=== PATIENT | female | born 1980 | race Caucasian/White ===

== ENCOUNTER 2017-04-06 18:50 | Emergency (ER) | payer OTHER, MEDICARE ==
--- NOTE | 2017-04-06 20:01 | ED.PDOC ---
History of Present Illness - General Stated Complaint: C/O ABDOMINAL AND VAGINAL PAIN Time Seen by Provider: 04/06/17 19:55 Source: patient Exam Limitations: no limitations Additional Information: PT C/O ABOVE SX. PAIN IN LOWER ABDOMEN IS SHARP, VAGINAL PAIN IS CRAMPING. - History of Present Illness Timing/Duration: other - TODAY Severity: mild Improving Factors: nothing Worsening Factors: nothing Allergies/Adverse Reactions: Allergies Acetaminophen [From Darvocet-N] Allergy (Verified 04/06/17 20:33) Dextromethorphan [From Ru-Tuss Expectorant] Allergy (Verified 04/06/17 20:33) Diphenhydramine [From Benadryl] Allergy (Verified 04/06/17 20:33) Erythromycin Allergy (Verified 04/06/17 20:33) Ethanol [From Ru-Tuss Expectorant] Allergy (Verified 04/06/17 20:33) Guaifenesin [From Ru-Tuss Expectorant] Allergy (Verified 04/06/17 20:33) Meperidine [From Demerol HCl] Allergy (Verified 04/06/17 20:33) Propoxyphene [From Darvocet-N] Allergy (Verified 04/06/17 20:33) Pseudoephedrine [From Ru-Tuss Expectorant] Allergy (Verified 04/06/17 20:33) Home Medications: Ambulatory Orders Cefuroxime Axetil [Ceftin] 500 mg PO BID #20 tab 04/06/17 Ondansetron [Zofran Odt] 4 mg PO TID PRN #6 tab 04/06/17 Phenazopyridine HCl [Pyridium] 200 mg PO TID PRN #9 tab 04/06/17 Review of Systems - Review of Systems Constitutional: Denies: chills, fever EENTM: States: no symptoms reported Respiratory: States: no symptoms reported Cardiology: States: no symptoms reported Gastrointestinal/Abdominal: States: abdominal pain. Denies: nausea, vomiting Genitourinary: States: dysuria, frequency, pain. Denies: discharge Musculoskeletal: States: no symptoms reported Skin: States: no symptoms reported Neurological: States: no symptoms reported Endocrine: States: no symptoms reported Family Medical History - Family History Mother Family History: Unknown Living Status: Still Living Physical Exam - Physical Exam General Appearance: Alert, No apparent distress, Obese, Well Nourished Eye Exam: bilateral normal Ears, Nose, Throat: hearing grossly normal, normal ENT inspection Neck: non-tender, full range of motion, supple Respiratory: lungs clear, normal breath sounds Cardiovascular/Chest: regular rate, rhythm, no murmur Gastrointestinal/Abdominal: normal bowel sounds, soft, no organomegaly, other - MILD DIFFUSE LOWER ABDOMINAL TTP G/U: NL EXT, NO D/C NL CX, NO MASSES, BIMANUAL , UTX ABSENT NO ADNEXAL MASS/TTP. Back Exam: normal inspection, no CVA tenderness, no vertebral tenderness Extremity: normal range of motion, non-tender, normal inspection Neurologic: alert, normal mood/affect Skin Exam: normal color, warm/dry Lymphatic: no adenopathy Departure - Departure Clinical Impression: History of PCOS UTI (urinary tract infection) Qualifiers: Urinary tract infection type: acute cystitis Hematuria presence: without hematuria Qualified Code(s): N30.00 - Acute cystitis without hematuria Time of Disposition: 21:09 Disposition: Discharge to Home or Self Care Condition: Excellent Instructions: DI for Urinary Tract Infection (UTI) Referrals: MANJIT MEDINA [Primary Care Provider] - 1-2 Weeks Prescriptions: Cefuroxime Axetil [Ceftin] 500 mg PO BID #20 tab Ondansetron [Zofran Odt] 4 mg PO TID PRN #6 tab PRN Reason: Nausea/Vomiting Phenazopyridine HCl [Pyridium] 200 mg PO TID PRN #9 tab PRN Reason: Pain Home Medications: Ambulatory Orders Cefuroxime Axetil [Ceftin] 500 mg PO BID #20 tab 04/06/17 Ondansetron [Zofran Odt] 4 mg PO TID PRN #6 tab 04/06/17 Phenazopyridine HCl [Pyridium] 200 mg PO TID PRN #9 tab 04/06/17
[2017-04-06 20:09] VITALS: TEMP 99.3
[2017-04-06] MEDS ORDERED: ONDANSETRON ODT (ER DISP) 8 MG TAB PO ONE (20:53)
[2017-04-06] MEDS ORDERED: ONDANSETRON ODT 8 MG TAB ONE (20:56)
[2017-04-06] MEDS ORDERED: ONDANSETRON ODT 8 MG TAB SL ONE (21:05)
[2017-04-06] MEDS ORDERED: cefTRIAXone SODIUM 1 GM VIAL IM ONE (21:15)
[2017-04-06] MEDS ORDERED: LIDOCAINE 1% 10 ML VIAL INJ ONE (21:29)
[2017-04-06 22:18] VITALS: BP 135/76; O2SAT 100
== END 2017-04-06 22:19 | disposition home or self-care (01) ==
LOC: ER 18:50
DX: N30.00 Acute cystitis without hematuria (principal); Z88.8 Allergy status to other drugs, medicaments and biological substances
CPT/HCPCS: 36415; 80048; 81001; 85025; 87086; J0696

== ENCOUNTER → 2018-12-11 | Outpatient (CLI) | payer OTHER, MEDICARE ==
--- NOTE | 2018-12-11 18:13 | US ---
EXAM DESCRIPTION: Carotid Duplex: ULTRASOUND. CLINICAL HISTORY: 38 years Female LEFT HEMIPARESIS COMPARISON: Bilateral digital screening breast tomosynthesis on the same visit TECHNIQUE: Transcutaneous scanning utilizing fonseca-scale and Doppler modes to evaluate the bilateral carotid systems and vertebral arteries. Percentage of diameter of stenosis or no stenosis recorded will be based upon NASCET criteria. FINDINGS: Peak systolic/end diastolic (CM-Sec) CCA Right 76/11 Left 83/14. ICA Right proximal 54/11, distal 80/27. Left proximal 72/31, Distal 75/27. Vertebral Right 45/17 Left 31/7. ECA (PS Only) Right 61/16 left 76/12. ICA/CCA peak systolic ratio: Right 1.0 Left 0.9 ICA/CCA end diastolic ratio: Right 2.5 Left 1.9 Vertebral arteries: antegrade flow. Comments: Atherosclerotic calcifications in the bilateral CCA bulbs and bifurcations. IMPRESSION: 1. Doppler evaluation of the bilateral carotid systems and vertebral arteries shows no hemodynamically significant stenoses. 2. Minimal amount of plaque seen in the carotid arteries bilaterally. Bilateral vertebral arteries showed antegrade-cephalad flow. Electronically signed by: Ho Alcaraz MD 12/11/2018 6:12 PM CDT
== END ==
LOC: US 10:00
PROVIDERS: ATTEND Emergency Medicine
DX: I65.23 Occlusion and stenosis of bilateral carotid arteries (principal); G81.90 Hemiplegia, unspecified affecting unspecified side

== ENCOUNTER → 2018-12-17 | Outpatient (CLI) | payer OTHER, MEDICARE ==
--- NOTE | 2018-12-17 17:31 | MAM ---
EXAM DESCRIPTION: Breast,Left (accession [id number]), Ultrasound. 3D Diagnostic, Bilateral (accession [id number]): Digital mammography. CLINICAL HISTORY: 38 yearsFemaleBREAST LUMP . Sensitive left breast and palpable lump, anterior inferior breast. No personal history of breast cancer. Remote family history history of breast and ovarian cancer. No childbirth. Postmenopausal 5+ years. Currently on HRT Lifetime risk of developing breast cancer (Tyrer-Cuzick model)(%): 12.4. COMPARISON: Baseline study at this facility. Bilateral diagnostic digital mammography 10/16/2012. No prior reports. TECHNIQUE: Bilateral LM, CC, and MLO projection full-field images, digital mammographic tomosynthesis technique. Bilateral 2-D digital full-field images. MLO and LM projections. CAD not utilized. . Transcutaneous scanning of the left breast utilizing fonseca-scale and Doppler modes. Scanning performed by the wearing apparel folder ; observation by Dr. Alcaraz. FINDINGS: The breast parenchymal density pattern is: Scattered areas of fibroglandular density. No skin thickening or nipple retraction the marker indicating palpable mass is visualized at the 7:00 position of the anterior third of the left breast, 4 cm from the nipple. Not associated with the mammographic abnormality. The right breast is larger than the left breast. The more dense fibroglandular tissues are in the lateral breasts bilaterally. A group of benign type calcifications in the right axilla. No focal, stellate mass or density, focal asymmetry , and no suspicious microcalcifications bilaterally. Ultrasound: Scanning of the left breast at the 7:00 position 4 cm from the nipple. Mixed heterogeneous mixture of fibroglandular and fatty echotexture. No dominant solid mass or distinct cyst. No large calcifications. No parenchymal edema. No overlying skin changes. IMPRESSION: Benign exam. BIRAD CATEGORY: 2 BENIGN FINDINGS. RECOMMENDATIONS: FOLLOW UP: Routine digital bilateral mammographic screening, at age 41. Written communication explaining the IMPRESSION and follow-up, will be mailed to the patient and referring health care provider. The FINDINGS and the FOLLOW-UP plan were reviewed in person with the patient after the examination. According to the [employer], yearly mammograms are recommended starting at age 40 and continuing as long as a woman is in good health. Any breast change noted on a breast self-exam should be reported promptly to the patient's healthcare provider. Breast MRI is recommended for women with an approximately 20-25% or greater lifetime risk of breast cancer, including women with a strong family history of breast or ovarian cancer and women who have been treated for Hodgkin's disease. A negative mammographic report should not delay tissue diagnosis in patients with significant clinical history or physical findings. Extremely dense breast tissue limits the sensitivity of digital mammography. Electronically signed by: Ho Alcaraz MD 12/17/2018 5:29 PM CDT
== END ==
LOC: MAMMO 09:30
PROVIDERS: ATTEND Emergency Medicine
DX: R92.8 Other abnormal and inconclusive findings on diagnostic imaging of breast (principal)
CPT/HCPCS: 76641; 77066; G0279